=== PATIENT | female | born 1960 | race Caucasian/White ===

== ENCOUNTER 2018-12-13 09:09 | Inpatient (IN) | payer MEDICARE, OTHER ==
[~2018-12-13] VITALS: Ht 152.4 cm; Wt 131.8 kg
[~2018-12-13 09:09] MED LIST: COR3.125T PO; FURO20TA4 PO; MULT1TAB74 PO
[2018-12-13] MEDS ORDERED: ondansetron/PF 4mg/2ml inj IV ONE (09:55)
[2018-12-13] MEDS ORDERED: normal saline 1000ML IV soln IVB ONE ×3 (09:55→11:25)
[2018-12-13 10:37] LABS: BASOPHILS % (AUTO) 0 % (0-1); EOSINOPHILS % (AUTO) 0 % (0-6); HEMOGLOBIN 14.8 g/dl (12.0-16.0); LYMPHOCYTES # (AUTO) 0.3 X10'3 (1.1-4.8); LYMPHOCYTES % (AUTO) 1.8 % (21-51); MEAN CORPUSCULAR HEMOGLOBIN 28.5 PG (27.0-31.0); MEAN CORPUSCULAR HGB CONC 33.6 g/dL (33.0-36.5); MEAN CORPUSCULAR VOLUME 84.8 FL (78-98); MEAN PLATELET VOLUME 8.5 FL (7.4-10.4); MONOCYTES # (AUTO) 0.4 X10'3 (0-0.9); MONOCYTES % (AUTO) 1.9 % (2-12); NEUTROPHILS # (AUTO) 17.4 X10'3 (1.8-7.7); NEUTROPHILS % (AUTO) 96.3 % (42-75); PLATELET COUNT 160 X10'3 (140-440); RED CELL DISTRIBUTION WIDTH 15.3 % (11.5-14.5); WHITE BLOOD COUNT 18.1 X10'3 (4.5-11.0)
[2018-12-13 10:38] LABS: ALANINE AMINOTRANSFERASE 23 U/L (12-78); ALBUMIN/GLOBULIN RATIO 0.7 (1.1-1.5); ALKALINE PHOSPHATASE 138 IU/L (46-116); AMYLASE 11 U/L (25-115); ANION GAP 11 (8-16); ASPARTATE AMINO TRANSFERASE 23 U/L (10-37); BILIRUBIN,TOTAL 1.7 MG/DL (0.1-1.0); BLOOD UREA NITROGEN 16 MG/DL (7-18); BUN/CREATININE RATIO 8.4 (6.6-38.0); CALCIUM 8.7 MG/DL (8.5-10.1); CHLORIDE 103 MMOL/L (99-107); CREATININE 1.91 MG/DL (0.40-0.90); GLUCOSE 171 MG/DL (70-104); SODIUM 139 MMOL/L (135-145); TOTAL CARBON DIOXIDE 25.3 MMOL/L (24-32); TOTAL PROTEIN 7.6 G/DL (6.4-8.2); eGFR 27 ML/MIN
[2018-12-13 10:39] LABS: POTASSIUM 2.9 MMOL/L (3.5-5.1)
[2018-12-13 11:04] LABS: CLARITY,URINE CLOUDY (Clear); COLOR,URINE YELLOW (Yellow); GLUCOSE, URINE NEGATIVE (Neg); KETONES,URINE NEGATIVE (Neg); LEUKOCYTE ESTERASE ,URINE LARGE (Neg); NITRITES, URINE POSITIVE (Neg); OCCULT BLOOD,URINE LARGE (Neg); PROTEIN,URINE >=300 mg/dl (Neg); UROBILINOGEN,URINE 0.2 E.U/dL (0.2-1.0)
[2018-12-13 11:10] LABS: UA COLLECTION TYPE CLN CATCH MIDSTREAM
[2018-12-13 11:15] LABS: RBC,URINE TNTC /HPF (0-2); WBC,URINE TNTC /HPF (0-4)
[2018-12-13 11:19] LABS: BACTERIA,URINE 4+ /HPF (Neg); SQUAMOUS EPITHELIAL CELL,UR MANY /LPF (FEW)
[2018-12-13] MEDS: potassium Cl 10 mEq/100mL bag IV ONE ×2 (11:23→12:00)
[2018-12-13] MEDS ORDERED: potassium 10mEq/100ml NS w/LIDOcaine (10mg/bag) IV SCH (11:25)
[2018-12-13] MEDS ORDERED: piperacillin/tazo 3.375gm/50ml 50 ML IV ONE (11:25)
[2018-12-13] MEDS ORDERED: potassium CL 10mEq/100ml bag 100 ML IV PRN ×2 (11:40)
[2018-12-13] MEDS ORDERED: magnesium Cl slow-release 64mg tablet PO PRN (11:40)
[2018-12-13] MEDS ORDERED: magnesium 2GM in 50ml NS 50 ML IV PRN (11:40)
[2018-12-13] MEDS ORDERED: potassium Cl 20 mEq SR tablet PO PRN ×2 (11:40)
[2018-12-13] MEDS ORDERED: magnesium 4gm in 100ml NS 100 ML IV PRN (11:40)
--- NOTE | 2018-12-13 12:07 | NUR ---
Received patient report from ER nurse Georges RAMOS. Awaiting arrival to room 345B.
[2018-12-13] MEDS ORDERED: potassium Cl 10 mEq/100mL bag IV SCH (12:08)
[2018-12-13 12:30] VITALS: BP 122/81
[2018-12-13] MEDS ORDERED: pantoprazole 40 MG vial IV ONE (13:17)
[2018-12-13] MEDS: acetaminophen 325mg tablet PO PRN (13:57)
[2018-12-13] MEDS: normal saline 1000ml 1,000 ML IV SCH ×3 (14:12→22:20)
[2018-12-13 18:00] VITALS: BP 118/75
--- NOTE | 2018-12-13 18:39 | NUR ---
Problems reprioritized. Patient report given, questions answered & plan of care reviewed with Odalys RAMOS.
[2018-12-13] MEDS: carVEDilol 3.125mg tablet PO SCH (19:29)
[2018-12-13] MEDS: docusate sod 100mg capsule PO SCH (19:32)
--- NOTE | 2018-12-13 20:41 | NUR ---
Patient in room [facility]. I have received report from RACHEL Gold and had the opportunity to ask questions and assume patient care. Addendum: 12/13/18 at 2041 by Odalys Torres RN Amended: Links added.
[2018-12-14 00:04] VITALS: BP 152/83
[2018-12-14] MEDS: acetaminophen 325mg tablet PO PRN (00:44)
[2018-12-14 05:37] LABS: ALBUMIN 2.5 G/DL (3.4-5.0); ANION GAP 7 (8-16); BLOOD UREA NITROGEN 21 MG/DL (7-18); BUN/CREATININE RATIO 14.8 (6.6-38.0); CHLORIDE 108 MMOL/L (99-107); CREATININE 1.42 MG/DL (0.40-0.90); GLUCOSE 134 MG/DL (70-104); MAGNESIUM 2.1 MG/DL (1.5-2.4); POTASSIUM 3.9 MMOL/L (3.5-5.1); SODIUM 142 MMOL/L (135-145); TOTAL CARBON DIOXIDE 26.7 MMOL/L (24-32); eGFR 38 ML/MIN
[2018-12-14 06:13] LABS: BASOPHILS % (AUTO) 0.1 % (0-1); EOSINOPHILS % (AUTO) 0.2 % (0-6); HEMATOCRIT 38.6 % (35.0-45.0); HEMOGLOBIN 12.9 g/dl (12.0-16.0); LYMPHOCYTES # (AUTO) 1.2 X10'3 (1.1-4.8); LYMPHOCYTES % (AUTO) 8.3 % (21-51); MEAN CORPUSCULAR HEMOGLOBIN 28.4 PG (27.0-31.0); MEAN CORPUSCULAR HGB CONC 33.3 g/dL (33.0-36.5); MEAN CORPUSCULAR VOLUME 85.3 FL (78-98); MEAN PLATELET VOLUME 9.4 FL (7.4-10.4); MONOCYTES % (AUTO) 7.1 % (2-12); NEUTROPHILS # (AUTO) 12.4 X10'3 (1.8-7.7); NEUTROPHILS % (AUTO) 84.3 % (42-75); PLATELET COUNT 125 X10'3 (140-440); RED BLOOD COUNT 4.53 X10'6 (4.20-5.60); RED CELL DISTRIBUTION WIDTH 15.4 % (11.5-14.5); WHITE BLOOD COUNT 14.7 X10'3 (4.5-11.0)
--- NOTE | 2018-12-14 06:15 | NUR ---
Patient in room [facility]. I have received report from Odalys RAMOS and had the opportunity to ask questions and assume patient care.
--- NOTE | 2018-12-14 06:16 | NUR ---
Problems reprioritized. Patient report given, questions answered & plan of care reviewed with RACHEL Gold. Addendum: 12/14/18 at 0617 by Odalys Torres RN Amended: Links added.
[2018-12-14 06:54] VITALS: BP 124/69
[2018-12-14] MEDS: CefTRIAXone/D5W-Rocephin 1gm 50 ML IV SCH (07:49)
[2018-12-14] MEDS: pantoprazole 40 MG vial IV SCH (07:49)
[2018-12-14] MEDS: carVEDilol 3.125mg tablet PO SCH ×2 (07:49→19:21)
[2018-12-14] MEDS: furosemide 20MG tablet PO SCH (07:49)
[2018-12-14] MEDS: docusate sod 100mg capsule PO SCH ×2 (07:49→19:23)
[2018-12-14] MEDS: K and/or MAG REPLACEMENT MC SCH (07:50)
[2018-12-14] MEDS: normal saline 1000ml 1,000 ML IV SCH ×2 (07:58→19:20)
[2018-12-14 11:25] VITALS: BP 127/75
--- NOTE | 2018-12-14 16:16 | NUR ---
Dr. Hector paged regarding CT results. Awaiting call back.
[2018-12-14] MEDS: HYDROcodone/acetaminophen 5mg/325mg tablet PO PRN (17:48)
--- NOTE | 2018-12-14 18:30 | NUR ---
Problems reprioritized. Patient report given, questions answered & plan of care reviewed with Wesley RAMOS.
--- NOTE | 2018-12-14 18:31 | NUR ---
Patient in room [facility]. I have received report from RACHEL Gold and had the opportunity to ask questions and assume patient care.
[2018-12-14] MEDS: lactobacillus rhamnosus 10,000 MMU CELLS/CAPSULE PO SCH (19:20)
[2018-12-14 20:00] VITALS: BP 136/85
[2018-12-15] VITALS: BP 161/91
[2018-12-15 05:15] LABS: BASOPHILS % (AUTO) 0.1 % (0-1); EOSINOPHILS # (AUTO) 0.1 X10'3 (0-0.9); EOSINOPHILS % (AUTO) 0.6 % (0-6); HEMATOCRIT 37.8 % (35.0-45.0); HEMOGLOBIN 12.3 g/dl (12.0-16.0); LYMPHOCYTES # (AUTO) 1.1 X10'3 (1.1-4.8); LYMPHOCYTES % (AUTO) 8.3 % (21-51); MEAN CORPUSCULAR HEMOGLOBIN 28.2 PG (27.0-31.0); MEAN CORPUSCULAR HGB CONC 32.5 g/dL (33.0-36.5); MEAN CORPUSCULAR VOLUME 86.9 FL (78-98); NEUTROPHILS # (AUTO) 10.5 X10'3 (1.8-7.7); PLATELET COUNT 126 X10'3 (140-440); RED BLOOD COUNT 4.36 X10'6 (4.20-5.60); RED CELL DISTRIBUTION WIDTH 15.7 % (11.5-14.5); WHITE BLOOD COUNT 12.7 X10'3 (4.5-11.0)
[2018-12-15 05:25] LABS: ALBUMIN 2.4 G/DL (3.4-5.0); ANION GAP 6 (8-16); BLOOD UREA NITROGEN 18 MG/DL (7-18); BUN/CREATININE RATIO 17.5 (6.6-38.0); CALCIUM 8.4 MG/DL (8.5-10.1); CHLORIDE 107 MMOL/L (99-107); CREATININE 1.03 MG/DL (0.40-0.90); GLUCOSE 141 MG/DL (70-104); SODIUM 140 MMOL/L (135-145); TOTAL CARBON DIOXIDE 27.2 MMOL/L (24-32); eGFR 55 ML/MIN
--- NOTE | 2018-12-15 06:27 | NUR ---
Patient in room [facility]. I have received report from Wesley RAMOS and had the opportunity to ask questions and assume patient care.
--- NOTE | 2018-12-15 06:28 | NUR ---
Problems reprioritized. Patient report given, questions answered & plan of care reviewed with RACHEL Bartholomew.
[2018-12-15 07:00] VITALS: BP 157/90
[2018-12-15] MEDS: CefTRIAXone/D5W-Rocephin 1gm 50 ML IV SCH (07:36)
[2018-12-15] MEDS: pantoprazole 40 MG vial IV SCH (07:37)
[2018-12-15] MEDS: docusate sod 100mg capsule PO SCH ×2 (07:37→19:04)
[2018-12-15] MEDS: lactobacillus rhamnosus 10,000 MMU CELLS/CAPSULE PO SCH ×2 (07:37→19:03)
[2018-12-15] MEDS: furosemide 20MG tablet PO SCH (07:37)
[2018-12-15] MEDS: carVEDilol 3.125mg tablet PO SCH ×2 (07:37→19:04)
[2018-12-15] MEDS: K and/or MAG REPLACEMENT MC SCH (08:00)
[2018-12-15 11:00] VITALS: BP 168/105
--- NOTE | 2018-12-15 11:13 | NUR ---
Patient was complaining of shortness of breath and being too sleepy. O2 sat was 95% at 2lpm/nc. Lung sounds were clear upon auscultation with audible expiratory wheezes noted. BP was 168/105, pulse of 86, BP this morning and midnight were also elevated. Dr. Hector notified about this. RT paged to evaluate patient per Dr. Hector's request. IVF NS discontinued per Dr. Hector's order
[2018-12-15] MEDS ORDERED: albuterol 2.5 MG/3 ML nebule ONE (11:31)
[2018-12-15] MEDS: ipratropium/albuterol 3ml nebule NEB SCH ×3 (15:00→23:33)
[2018-12-15 18:00] VITALS: BP 169/108
[2018-12-15] MEDS: ondansetron/PF 4mg/2ml inj IV PRN (18:35)
--- NOTE | 2018-12-15 18:44 | NUR ---
Problems reprioritized. Patient report given, questions answered & plan of care reviewed with Wesley RAMOS.
--- NOTE | 2018-12-15 18:45 | NUR ---
Patient in room [facility]. I have received report from RACHEL Bartholomew and had the opportunity to ask questions and assume patient care.
[2018-12-15] MEDS: HYDROcodone/acetaminophen 5mg/325mg tablet PO PRN (20:53)
[2018-12-15] MEDS: hydrALAZINE 20mg/ml inj. IV PRN (21:33)
[2018-12-16] VITALS (8 sets, daily range): BP systolic 139–180; BP diastolic 77–111
[2018-12-16] MEDS: ipratropium/albuterol 3ml nebule NEB SCH ×5 (03:17→20:16)
[2018-12-16 05:33] LABS: ALBUMIN 2.5 G/DL (3.4-5.0); ANION GAP 6 (8-16); BLOOD UREA NITROGEN 16 MG/DL (7-18); BUN/CREATININE RATIO 16.7 (6.6-38.0); CALCIUM 8.8 MG/DL (8.5-10.1); CHLORIDE 107 MMOL/L (99-107); CREATININE 0.96 MG/DL (0.40-0.90); GLUCOSE 127 MG/DL (70-104); MAGNESIUM 1.7 MG/DL (1.5-2.4); POTASSIUM 3.9 MMOL/L (3.5-5.1); SODIUM 142 MMOL/L (135-145); TOTAL CARBON DIOXIDE 29.2 MMOL/L (24-32); eGFR 59 ML/MIN
--- NOTE | 2018-12-16 06:00 | NUR ---
Problems reprioritized. Patient report given, questions answered & plan of care reviewed with RACHEL Bartholomew.
--- NOTE | 2018-12-16 06:41 | NUR ---
Patient in room [facility]. I have received report from Wesley RAMOS and had the opportunity to ask questions and assume patient care.
[2018-12-16] MEDS: hydrALAZINE 20mg/ml inj. IV PRN ×2 (07:03→11:29)
[2018-12-16] MEDS: K and/or MAG REPLACEMENT MC SCH (08:00)
[2018-12-16] MEDS: carVEDilol 3.125mg tablet PO SCH ×2 (08:25→19:46)
[2018-12-16] MEDS: pantoprazole 40mg Tablet.DR PO SCH (08:25)
[2018-12-16] MEDS: CefTRIAXone/D5W-Rocephin 1gm 50 ML IV SCH (08:25)
[2018-12-16] MEDS: lactobacillus rhamnosus 10,000 MMU CELLS/CAPSULE PO SCH ×2 (08:25→19:46)
[2018-12-16] MEDS: docusate sod 100mg capsule PO SCH ×2 (08:25→19:46)
[2018-12-16] MEDS: furosemide 20MG tablet PO SCH (08:26)
[2018-12-16 09:04] LABS: BASOPHILS % (AUTO) 0.2 % (0-1); EOSINOPHILS # (AUTO) 0.1 X10'3 (0-0.9); EOSINOPHILS % (AUTO) 1.4 % (0-6); HEMATOCRIT 39.2 % (35.0-45.0); HEMOGLOBIN 13.4 g/dl (12.0-16.0); LYMPHOCYTES # (AUTO) 1.1 X10'3 (1.1-4.8); LYMPHOCYTES % (AUTO) 11.5 % (21-51); MEAN CORPUSCULAR HEMOGLOBIN 29.4 PG (27.0-31.0); MEAN CORPUSCULAR HGB CONC 34.3 g/dL (33.0-36.5); MEAN CORPUSCULAR VOLUME 85.9 FL (78-98); MEAN PLATELET VOLUME 9.1 FL (7.4-10.4); MONOCYTES # (AUTO) 0.7 X10'3 (0-0.9); NEUTROPHILS # (AUTO) 7.9 X10'3 (1.8-7.7); NEUTROPHILS % (AUTO) 79.9 % (42-75); PLATELET COUNT 106 X10'3 (140-440); RED BLOOD COUNT 4.57 X10'6 (4.20-5.60); RED CELL DISTRIBUTION WIDTH 15.1 % (11.5-14.5); WHITE BLOOD COUNT 9.9 X10'3 (4.5-11.0)
[2018-12-16] MEDS: ondansetron/PF 4mg/2ml inj IV PRN (11:29)
--- NOTE | 2018-12-16 11:50 | NUR ---
Dr. Hector notified about patient's persistent elevated BP now headache and nausea. Hydralazine 10mg IV and Zofran IV were given
[2018-12-16] MEDS: amLODIPine 5mg tablet PO SCH (14:04)
--- NOTE | 2018-12-16 18:40 | NUR ---
Patient in room [facility]. I have received report from RACHEL Bartholomew and had the opportunity to ask questions and assume patient care.
--- NOTE | 2018-12-16 18:56 | NUR ---
Problems reprioritized. Patient report given, questions answered & plan of care reviewed with Abundio RAMOS.
[2018-12-16] MEDS ORDERED: albuterol 2.5 MG/3 ML nebule NEB PRN (21:35)
[2018-12-17] VITALS: BP 156/88
[2018-12-17 04:57] LABS: BASOPHILS % (AUTO) 0.4 % (0-1); EOSINOPHILS # (AUTO) 0.1 X10'3 (0-0.9); EOSINOPHILS % (AUTO) 1.3 % (0-6); HEMATOCRIT 37.5 % (35.0-45.0); HEMOGLOBIN 12.6 g/dl (12.0-16.0); LYMPHOCYTES # (AUTO) 1.1 X10'3 (1.1-4.8); LYMPHOCYTES % (AUTO) 10.5 % (21-51); MEAN CORPUSCULAR HEMOGLOBIN 28.6 PG (27.0-31.0); MEAN CORPUSCULAR HGB CONC 33.7 g/dL (33.0-36.5); MEAN PLATELET VOLUME 8.8 FL (7.4-10.4); MONOCYTES # (AUTO) 0.9 X10'3 (0-0.9); MONOCYTES % (AUTO) 8.6 % (2-12); NEUTROPHILS % (AUTO) 79.2 % (42-75); PLATELET COUNT 145 X10'3 (140-440); RED BLOOD COUNT 4.42 X10'6 (4.20-5.60); RED CELL DISTRIBUTION WIDTH 15.4 % (11.5-14.5); WHITE BLOOD COUNT 10.1 X10'3 (4.5-11.0)
[2018-12-17 05:10] LABS: ALBUMIN 2.5 G/DL (3.4-5.0); ANION GAP 7 (8-16); BLOOD UREA NITROGEN 15 MG/DL (7-18); BUN/CREATININE RATIO 17.2 (6.6-38.0); CALCIUM 9.7 MG/DL (8.5-10.1); CHLORIDE 106 MMOL/L (99-107); CREATININE 0.87 MG/DL (0.40-0.90); GLUCOSE 129 MG/DL (70-104); MAGNESIUM 1.7 MG/DL (1.5-2.4); POTASSIUM 3.5 MMOL/L (3.5-5.1); SODIUM 143 MMOL/L (135-145); TOTAL CARBON DIOXIDE 29.9 MMOL/L (24-32); eGFR 67 ML/MIN
[2018-12-17 06:00] VITALS: BP 184/111
--- NOTE | 2018-12-17 06:48 | NUR ---
Problems reprioritized. Patient report given, questions answered & plan of care reviewed with RACHEL Addison.
[2018-12-17] MEDS: furosemide 20MG tablet PO SCH (07:45)
[2018-12-17] MEDS: lactobacillus rhamnosus 10,000 MMU CELLS/CAPSULE PO SCH ×2 (07:45→19:20)
[2018-12-17] MEDS: carVEDilol 3.125mg tablet PO SCH (07:45)
[2018-12-17] MEDS: amLODIPine 5mg tablet PO SCH (07:45)
[2018-12-17] MEDS: docusate sod 100mg capsule PO SCH ×2 (07:45→19:20)
[2018-12-17] MEDS: pantoprazole 40mg Tablet.DR PO SCH (07:45)
[2018-12-17] MEDS: CefTRIAXone/D5W-Rocephin 1gm 50 ML IV SCH (07:46)
[2018-12-17] MEDS: K and/or MAG REPLACEMENT MC SCH (08:00)
[2018-12-17 09:00] VITALS: BP 168/95
[2018-12-17] MEDS: hydrALAZINE 20mg/ml inj. IV PRN ×2 (09:46→19:22)
[2018-12-17 11:00] VITALS: BP 161/93
--- NOTE | 2018-12-17 15:45 | NUR ---
PATIENT ASSISTED TO TAKE A SHOWER WALKED WITH WALKER AND STANDBY ASSIST APPROX. 100 FEET.
--- NOTE | 2018-12-17 18:10 | NUR ---
Patient in room [facility]. I have received report from Cyn RAMOS and had the opportunity to ask questions and assume patient care.
[2018-12-17 19:00] VITALS: BP 181/99
[2018-12-17] MEDS: carvedilol 6.25mg tablet PO SCH (19:20)
[2018-12-17] MEDS: acetaminophen 325mg tablet PO PRN (21:22)
[2018-12-17] MEDS: nystatin 15 GM powder TP SCH (22:55)
[2018-12-18] VITALS: BP 137/74
[2018-12-18] MEDS ORDERED: acetaminophen 325mg tablet PO PRN (04:45)
[2018-12-18 04:50] VITALS: BP 183/106
[2018-12-18] MEDS: acetaminophen 325mg tablet PO PRN (04:50)
--- NOTE | 2018-12-18 04:50 | NUR ---
Patient awoke with a TOLENTINO again 08/28. Pt also had elevated BP of 183/106, pulse 76. Patient afebrile at 98.6. Patient to be given tylenol for pain and hydralazine for BP.
[2018-12-18] MEDS: hydrALAZINE 20mg/ml inj. IV PRN (04:54)
--- NOTE | 2018-12-18 05:40 | NUR ---
New order obtained for nystatin powder to pannus and all folds d/t redness.
[2018-12-18 05:47] LABS: ALBUMIN 2.7 G/DL (3.4-5.0); ANION GAP 8 (8-16); BLOOD UREA NITROGEN 14 MG/DL (7-18); BUN/CREATININE RATIO 14.4 (6.6-38.0); CALCIUM 9.3 MG/DL (8.5-10.1); CHLORIDE 104 MMOL/L (99-107); CREATININE 0.97 MG/DL (0.40-0.90); GLUCOSE 146 MG/DL (70-104); MAGNESIUM 1.5 MG/DL (1.5-2.4); POTASSIUM 3.2 MMOL/L (3.5-5.1); SODIUM 143 MMOL/L (135-145); TOTAL CARBON DIOXIDE 31.4 MMOL/L (24-32); eGFR 59 ML/MIN
[2018-12-18 05:50] LABS: BASOPHILS % (AUTO) 0.3 % (0-1); EOSINOPHILS # (AUTO) 0.2 X10'3 (0-0.9); EOSINOPHILS % (AUTO) 1.8 % (0-6); HEMATOCRIT 41.1 % (35.0-45.0); HEMOGLOBIN 13.8 g/dl (12.0-16.0); LYMPHOCYTES # (AUTO) 1.7 X10'3 (1.1-4.8); LYMPHOCYTES % (AUTO) 16.7 % (21-51); MEAN CORPUSCULAR HEMOGLOBIN 28.7 PG (27.0-31.0); MEAN CORPUSCULAR HGB CONC 33.5 g/dL (33.0-36.5); MEAN CORPUSCULAR VOLUME 85.6 FL (78-98); MEAN PLATELET VOLUME 9.2 FL (7.4-10.4); MONOCYTES # (AUTO) 0.9 X10'3 (0-0.9); MONOCYTES % (AUTO) 9.3 % (2-12); NEUTROPHILS # (AUTO) 7.2 X10'3 (1.8-7.7); NEUTROPHILS % (AUTO) 71.9 % (42-75); PLATELET COUNT 187 X10'3 (140-440); RED CELL DISTRIBUTION WIDTH 15.5 % (11.5-14.5)
[2018-12-18 05:55] VITALS: BP 155/105
--- NOTE | 2018-12-18 06:40 | NUR ---
Problems reprioritized. Patient report given, questions answered & plan of care reviewed with Charleen RAMOS.
[2018-12-18 06:54] LABS: PLATELET ESTIMATE NORMAL; TOTAL CELLS COUNTED 100
[2018-12-18 07:15] VITALS: BP 147/81
[2018-12-18] MEDS: K and/or MAG REPLACEMENT MC SCH (08:00)
[2018-12-18] MEDS: CefTRIAXone/D5W-Rocephin 1gm 50 ML IV SCH (08:25)
[2018-12-18] MEDS: docusate sod 100mg capsule PO SCH (08:32)
[2018-12-18] MEDS: pantoprazole 40mg Tablet.DR PO SCH (08:32)
[2018-12-18] MEDS: amLODIPine 5mg tablet PO SCH (08:32)
[2018-12-18] MEDS: lactobacillus rhamnosus 10,000 MMU CELLS/CAPSULE PO SCH (08:32)
[2018-12-18] MEDS: carvedilol 6.25mg tablet PO SCH (08:33)
[2018-12-18] MEDS: furosemide 20MG tablet PO SCH (08:33)
[2018-12-18] MEDS: nystatin 15 GM powder TP SCH (08:34)
[2018-12-18] MEDS ORDERED: CIPR-230 PO (11:08)
[2018-12-18] MEDS ORDERED: POTA20TA10 PO (11:08)
[2018-12-18] MEDS ORDERED: NOR5T PO (11:08)
[2018-12-18] MEDS ORDERED: CARV6.253 PO (11:08)
[2018-12-18] MEDS ORDERED: potassium Cl 20 mEq SR tablet PO STA (12:08)
[2018-12-18] MEDS ORDERED: FURO20TA4 PO (12:26)
--- NOTE | 2018-12-18 14:11 | NUR ---
PT DISCHARGED HOME WITH , 2X IV TAKEN OUT BY ISH RAMOS. NO TELE, ALL BELONGINGS TAKEN FROM ROOM. PT HAS HIGH BP'S AT TIMES. DR MALHOTRA AWARE AND PT HAS BEEN INSTRUCTED TO F/U WITH PCP FOR BP'S. MEDS GIVEN BY [facility]. DR MALHOTRA ADDED 40MG LASIX DAILY TO MEDS LATE, CALLED [facility] AND THEY ADDED IT TO OTHER MEDS. 2X IV'S TAKEN OUT, NO TELE, BROUGHT 02 FOR HOME DISCHARGE, ALL BELONGINGS TAKEN FROM ROOM.
== END 2018-12-18 13:30 | disposition home or self-care (01) | DRG 871 ==
LOC: ER 09:09 → SUR 3N 12:15 → CMPBEDREQ 12-14 19:34
PROVIDERS: ADMIT Internal Medicine; ATTEND Internal Medicine
PROC: 5A09357 Assistance with Respiratory Ventilation, Less than 24 Consecutive Hours, Continuous Positive Airway Pressure (ICD-10-PCS; principal; 2018-12-15)
PROC: 5A09357 Assistance with Respiratory Ventilation, Less than 24 Consecutive Hours, Continuous Positive Airway Pressure (ICD-10-PCS; 2018-12-16)
PROC: 5A09357 Assistance with Respiratory Ventilation, Less than 24 Consecutive Hours, Continuous Positive Airway Pressure (ICD-10-PCS; 2018-12-17)
PROC: 5A09357 Assistance with Respiratory Ventilation, Less than 24 Consecutive Hours, Continuous Positive Airway Pressure (ICD-10-PCS; 2018-12-18)
DX: A41.50 Gram-negative sepsis, unspecified (principal); N17.0 Acute kidney failure with tubular necrosis; N39.0 Urinary tract infection, site not specified; I13.0 Hypertensive heart and chronic kidney disease with heart failure and stage 1 through stage 4 chronic kidney disease, or unspecified chronic kidney disease; Z68.43 Body mass index [BMI] 50.0-59.9, adult; E87.6 Hypokalemia; G47.30 Sleep apnea, unspecified; E66.01 Morbid (severe) obesity due to excess calories; I50.9 Heart failure, unspecified; N20.0 Calculus of kidney; B96.1 Klebsiella pneumoniae [K. pneumoniae] as the cause of diseases classified elsewhere; I71.4 Abdominal aortic aneurysm, without rupture; R51 Headache; J44.9 Chronic obstructive pulmonary disease, unspecified; N18.9 Chronic kidney disease, unspecified; Z87.442 Personal history of urinary calculi; Z91.030 Bee allergy status; Z98.891 History of uterine scar from previous surgery; Z79.899 Other long term (current) drug therapy
CPT/HCPCS: 36415; 71045; 74176; 76700; 80048; 80053; 81001; 82150; 83605; 83735; 84132; 84145; 85025; 85610; 87040; 87077; 87081; 87186; 93005; 94640; 94660; 94667; 94760; 96365; 96375; 97116; 97161; 99285; C9113; G0378; J0360; J0696; J2405; J2543; J3480; J7030

== ENCOUNTER 2019-12-21 15:03 | Emergency (ER) | payer MEDICARE ==
[~2019-12-21] VITALS: Ht 152.4 cm; Wt 130.0 kg
[~2019-12-21 15:03] MED LIST changes: +CARV6.253 PO; -COR3.125T PO; +MULT-620 PO; -MULT1TAB74 PO; +NOR5T PO; +POTA20TA10 PO
[2019-12-21 15:47] LABS: BASOPHILS % (AUTO) 0.2 % (0-1); EOSINOPHILS % (AUTO) 0 % (0-6); HEMATOCRIT 46.4 % (35.0-45.0); HEMOGLOBIN 15.9 g/dl (12.0-16.0); LYMPHOCYTES # (AUTO) 2.1 X10'3 (1.1-4.8); LYMPHOCYTES % (AUTO) 8.7 % (21-51); MEAN CORPUSCULAR HEMOGLOBIN 29.9 PG (27.0-31.0); MEAN CORPUSCULAR HGB CONC 34.2 g/dL (33.0-36.5); MEAN CORPUSCULAR VOLUME 87.6 FL (78-98); MEAN PLATELET VOLUME 9.3 FL (7.4-10.4); MONOCYTES # (AUTO) 1.4 X10'3 (0-0.9); MONOCYTES % (AUTO) 5.8 % (2-12); NEUTROPHILS # (AUTO) 20.6 X10'3 (1.8-7.7); NEUTROPHILS % (AUTO) 85.3 % (42-75); PLATELET COUNT 312 X10'3 (140-440); RED BLOOD COUNT 5.29 X10'6 (4.20-5.60); RED CELL DISTRIBUTION WIDTH 13.3 % (11.5-14.5); WHITE BLOOD COUNT 24.2 X10'3 (4.5-11.0)
[2019-12-21 16:01] LABS: ALANINE AMINOTRANSFERASE 22 U/L (12-78); ALBUMIN 4.1 G/DL (3.4-5.0); ALBUMIN/GLOBULIN RATIO 0.7 (1.1-1.5); ALKALINE PHOSPHATASE 96 IU/L (46-116); AMYLASE 19 U/L (25-115); ANION GAP 13 (8-16); ASPARTATE AMINO TRANSFERASE 13 U/L (10-37); BILIRUBIN,TOTAL 1.1 MG/DL (0.1-1.0); BLOOD UREA NITROGEN 11 MG/DL (7-18); BUN/CREATININE RATIO 12.2 (6.6-38.0); CALCIUM 9.9 MG/DL (8.5-10.1); CHLORIDE 97 MMOL/L (99-107); GLUCOSE 207 MG/DL (70-104); LIPASE 78 U/L (73-393); SODIUM 136 MMOL/L (135-145); TOTAL CARBON DIOXIDE 25.9 MMOL/L (24-32); TOTAL PROTEIN 9.7 G/DL (6.4-8.2); eGFR 64 ML/MIN
[2019-12-21] MEDS ORDERED: normal saline 1000ML IV soln IV ONE (18:05)
[2019-12-21] MEDS ORDERED: CefTRIAXone 2gm/D5W 50ml 50 ML IV ONE (18:05)
[2019-12-21 18:44] LABS: CLARITY,URINE CLOUDY (Clear); COLOR,URINE YELLOW (Yellow); GLUCOSE, URINE NEGATIVE (Neg); KETONES,URINE NEGATIVE (Neg); LEUKOCYTE ESTERASE ,URINE NEGATIVE (Neg); NITRITES, URINE NEGATIVE (Neg); OCCULT BLOOD,URINE LARGE (Neg); PROTEIN,URINE >=300 mg/dl (Neg); UROBILINOGEN,URINE 0.2 E.U/dL (0.2-1.0)
[2019-12-21 18:45] LABS: UA COLLECTION TYPE STRAIGHT CATH; URINE HCG NEGATIVE (NEG)
[2019-12-21 18:49] LABS: BACTERIA,URINE 4+ /HPF (Neg); SQUAMOUS EPITHELIAL CELL,UR FEW /LPF (FEW); WBC,URINE 30-50 /HPF (0-4)
--- NOTE | 2019-12-21 18:50 | NUR ---
ASSISTING RN WITH PT CARE, 1ST LITER NS INFUSING W/O, PT IS RESTING QUIETLY ON BED, RESP EVEN AND UNLABORED, REPORT TO BENITO RAMOS
[2019-12-21] MEDS ORDERED: iohexol 350MG/ML 100ml bottle IV ONE (19:22)
[2019-12-21] MEDS ORDERED: morphine 4 MG/ML inj SYRINge IV ONE (19:45)
[2019-12-21] MEDS ORDERED: esmolol/sodium cl bag 250 ML IV SCH (20:10)
[2019-12-21] MEDS ORDERED: LIDOcaine 1% (10mg/ml) 2ml vial ONE (21:09)
--- NOTE | 2019-12-21 21:19 | NUR ---
esmolol held per David Joseph.
[2019-12-21 21:27] LABS: BASOPHILS % (AUTO) 0 % (0-1); EOSINOPHILS % (AUTO) 0 % (0-6); HEMATOCRIT 37.2 % (35.0-45.0); HEMOGLOBIN 12.4 g/dl (12.0-16.0); LYMPHOCYTES # (AUTO) 1.3 X10'3 (1.1-4.8); LYMPHOCYTES % (AUTO) 4.8 % (21-51); MEAN CORPUSCULAR HEMOGLOBIN 29.7 PG (27.0-31.0); MEAN CORPUSCULAR HGB CONC 33.4 g/dL (33.0-36.5); MEAN PLATELET VOLUME 9.1 FL (7.4-10.4); MONOCYTES # (AUTO) 2.9 X10'3 (0-0.9); MONOCYTES % (AUTO) 10.6 % (2-12); NEUTROPHILS # (AUTO) 23.3 X10'3 (1.8-7.7); NEUTROPHILS % (AUTO) 84.6 % (42-75); PLATELET COUNT 246 X10'3 (140-440); RED BLOOD COUNT 4.17 X10'6 (4.20-5.60); RED CELL DISTRIBUTION WIDTH 13.4 % (11.5-14.5)
[2019-12-21 21:38] LABS: WHITE BLOOD COUNT 27.6 X10'3 (4.5-11.0)
--- NOTE | 2019-12-21 21:40 | NUR ---
RN KELI GIVING REPORT TO NURSE AT [place]. PTS , AUSTIN HAMMER ([phone]) AT BEDSIDE. PT GIVEN MOUTH SWABS. REPORTIGN DRY MOUTH. PAIN TO MID AND LOWER BACK AND BLIATERAL HIPS (RIGHT MORE THAN LEFT) AND LOWER ABDOMEN. PAIN IS 8 OUT OF 10. HR 107, ST, NO ECTOPY. 104/60 ARTERIAL PRESSURE.
--- NOTE | 2019-12-21 21:42 | NUR ---
Report to RACHEL Navarro of [place].
--- NOTE | 2019-12-21 21:46 | NUR ---
COVID SCREEN NEGATIVE. Uzma GARCIA.
--- NOTE | 2019-12-21 21:47 | NUR ---
Melanie calvin [facility] notified of negative covid result.
[2019-12-21] MEDS ORDERED: fentaNYL/PF 50MCG/1 ML 2ML syringe IV ONE (22:10)
[2019-12-21] MEDS ORDERED: normal saline 1000ml 1,000 ML IV ONE (22:12)
[2019-12-21] MEDS ORDERED: normal saline 1000ML IV soln IVB ONE (22:15)
[2019-12-21 22:51] LABS: TOTAL CELLS COUNTED 100
[2019-12-21 22:52] LABS: PLATELET ESTIMATE NORMAL
--- NOTE | 2019-12-21 23:18 | NUR ---
assisting with transport, double checked 2 units PRBC with Ana Lilia RN, flight nurse
[2019-12-22 00:31] VITALS: BP 115/77
--- NOTE | 2019-12-24 09:48 | NUR ---
Received sensitivity report from lab. Patient was given Rocephin prior to discharge in ED which was an appropriate antibiotic for patinet, will contact [facility] to fax sensitivity. Patient was transfered to [facility] for higher level of care. Called number listed on discharge/transfer in [facility] was given number for nurses station at [phone]. I notified the hot metal charger Bryson regarding results and faxed them to [phone] per Bryson RN's request.
== END 2019-12-21 23:15 | disposition short-term general hospital (02) ==
LOC: ER 15:04
DX: I71.3 Abdominal aortic aneurysm, ruptured (principal); R10.31 Right lower quadrant pain; M25.559 Pain in unspecified hip; N20.0 Calculus of kidney; N39.0 Urinary tract infection, site not specified; I11.0 Hypertensive heart disease with heart failure; I50.9 Heart failure, unspecified; J44.9 Chronic obstructive pulmonary disease, unspecified; Z87.440 Personal history of urinary (tract) infections; Z87.442 Personal history of urinary calculi; Z98.890 Other specified postprocedural states; Z91.030 Bee allergy status; Z79.899 Other long term (current) drug therapy
CPT/HCPCS: 36415; 36556; 71045; 74174; 80053; 81001; 81025; 82150; 83605; 83690; 84145; 85007; 85025; 86885; 86900; 86901; 86920; 87040; 87077; 87088; 87186; 87635; 93005; 96365; 96375; 99291; 99292; A6258; C9803; J0696; J2001; J2270; J3010; J7030; J7040; P9016; Q9967